=== PATIENT | female | born 1945 | race Caucasian/White ===

== ENCOUNTER 2017-07-05 11:39 | Inpatient (IN) ==
[2017-07-05] MEDS ORDERED: Ipratropium/Albuterol Neb 3 ML IH ONE (11:47)
[2017-07-05] MEDS ORDERED: predniSONE 20 MG TABLET PO ONE (11:47)
--- NOTE | 2017-07-05 12:11 | Emergency Department Note ---
Disposition Clinical Impression: Acute exacerbation of chronic obstructive airways disease Disposition: Still a Patient Referrals: Milana Montemayor CNP [Primary Care Provider] - General Adult HPI - General Chief complaint: ED Shortness of Breath/Dyspnea Stated complaint: NAOMI Time Seen by Provider: 07/05/17 11:45 - History of Present Illness Pain Scale: 8 - Related Data Home Medications Medication Instructions Recorded Confirmed Albuterol Sulfate [Proair Hfa] 2 puff IH Q4H PRN 08/19/16 09/13/16 Amlodipine Besylate 10 mg PO DAILY 08/19/16 09/13/16 Aspirin [Lo-Dose Aspirin EC] 81 mg PO DAILY 08/19/16 09/13/16 Atorvastatin Calcium [Lipitor] 80 mg PO DAILY 08/19/16 09/13/16 Buspirone HCl [Buspar] 15 mg PO BID 08/19/16 09/13/16 Clopidogrel [Plavix] 75 mg PO DAILY 08/19/16 09/13/16 Ergocalciferol (VITAMIN D2) 50,000 unit PO QWEEK 08/19/16 09/13/16 [Vitamin D2] Isosorbide MONOnitrate [Isosorbide 120 mg PO DAILY 08/19/16 09/13/16 Mononitrate ER] Levothyroxine [Synthroid] 100 mcg PO DAILY 08/19/16 09/13/16 Lisinopril [Zestril] 10 mg PO DAILY 08/19/16 09/13/16 Metoprolol XL (24 HR) Succ [Toprol 12.5 mg PO DAILY 08/19/16 09/13/16 Xl] Nitroglycerin [Nitrostat] 0.4 mg SL Q5M PRN 08/19/16 09/13/16 Omeprazole [PriLOSEC] 20 mg PO DAILY 08/19/16 09/13/16 Sucralfate [Carafate] 1 gm PO BID 08/19/16 09/13/16 Trazodone HCl 50 mg PO HS PRN 08/19/16 09/13/16 Lactobacillus Acidophilus 100 mg PO QID 09/13/16 09/13/16 [Acidophilus] Allergies Allergy/AdvReac Type Severity Reaction Status Date / Time celecoxib [From Celebrex] AdvReac See Verified 07/05/17 11:42 Comments NSAIDS (Non-Steroidal AdvReac SEE COMMENT Verified 07/05/17 11:42 Anti-Inflamma Sulfa (Sulfonamide AdvReac AMS Verified 07/05/17 11:42 Antibiotics) Past Medical History - Past Medical History Medical history: Reports: asthma, COPD, coronary artery disease, GERD, hyperlipidemia, hypertension, myocardial infarction, renal disease Surgical history: Reports: angioplasty/stent, coronary bypass (CABG), CARLOS/BSO, thyroidectomy Psychiatric history: Reports: anxiety, depression CASEWORKER INTAKE history: Reports: no CASEWORKER INTAKE history - Social History Smoking Status: Current every day smoker Smokeless Tobacco Status: No Alcohol use: Reports: none Drug use: Reports: none Course - Reevaluation(s) Reevaluation #1: Attestation note I did independently examine and verified the physical examination findings evaluation workup and disposition of this patient. We had independent face-to- face examination and discussion. The patient was seen with the emergency medicine resident Dr. RADHA BARROW I examined this patient and my medical decision-making was reviewed with the Resident Physician/EVENT COORDINATOR/PA. I agree with the documented findings, disposition and treatment plan as described except to the extent set forth below. Briefly: 71-year-old female O2 dependent COPD comes in with several days of increasing cough shortness breath and fatigue. Patient has bilateral expiratory wheezing with rhonchi. Patient is tachycardic and slightly hypoxic. Placed on oxygen getting triple DuoNeb steroids and lateral chest x-ray EKG and screening labs. Providing 40 minutes of critical care service for this patient. Disposition pending Time: 12:10 Vital Signs Temperature 97.8 F 07/05/17 11:41 Pulse Rate 81 07/05/17 11:41 Respiratory Rate 24 07/05/17 11:41 Blood Pressure 138/70 07/05/17 11:41 O2 Sat by Pulse Oximetry 95 07/05/17 11:41 Temperature 97.8 F 07/05/17 11:41 Pulse Rate 81 07/05/17 11:41 Respiratory Rate 24 07/05/17 11:41 Blood Pressure 138/70 07/05/17 11:41 O2 Sat by Pulse Oximetry 95 07/05/17 11:41 Oxygen Delivery Oxygen Delivery Room Air
[2017-07-05 12:24] LABS: Basophils % 0.7 %; Eosinophils # 0.2 K/mcL (0.0-0.6); Eosinophils % 2.5 %; Hematocrit 39.7 % (35.3-44.9); Hemoglobin 13.6 g/dL (11.5-15.4); Immature Granulocytes % 0.3 % (0-4); Lymphocytes % 32.1 %; Mean Corpuscular HGB Conc 34.3 g/dL (31.6-35.5); Mean Corpuscular Hemoglobin 31.4 pg (28.0-33.3); Mean Corpuscular Volume 91.7 fL (83.0-100.0); Mean Platelet Volume 8.7 fL (9.4-12.4); Monocytes # 0.3 K/mcL (0.0-1.3); Monocytes % 5.6 %; Neutrophils # 3.6 K/mcL (1.6-8.9); Nucleated Red Blood Cells 0.3 /100 WBC (0); Platelet Count 310 K/mcL (140-400); Red Blood Count 4.33 M/mcL (3.82-4.97); Red Cell Distribution Width 14.6 % (11.5-14.5); Segmented Neutrophils % 58.8 %
[2017-07-05 12:33] LABS: BUN/Creatinine Ratio 16 (6-26); Blood Urea Nitrogen 14 mg/dL (8-23); Calcium 9.5 mg/dL (8.6-10.3); Carbon Dioxide 23 mEq/L (23-29); Chloride 104 mEq/L (98-107); Glucose 132 mg/dL (70-105); Osmolality,Calculated 282 (280-300); Potassium 3.9 mEq/L (3.5-5.1); Sodium 135 mEq/L (136-145); Troponin I < 0.03 ng/mL (< 0.04); eGFR For African Americans > 60 (> 60); eGFR For Non-African Americans > 60 (> 60)
[2017-07-05] MEDS ORDERED: *HR* LORazepam 2 MG/ML VIAL IVP ONE (13:31)
--- NOTE | 2017-07-05 15:14 | Emergency Department Note ---
Disposition Clinical Impression: Acute exacerbation of chronic obstructive airways disease Chest pain Qualifiers: Chest pain type: unspecified Qualified Code(s): R07.9 - Chest pain, unspecified Disposition: Admitted As Inpatient Condition: Fair Referrals: Milana Montemayor CNP [Primary Care Provider] - Time of Disposition: 13:00 SOB HPI - General Chief Complaint: ED Shortness of Breath/Dyspnea Stated Complaint: NAOMI Time Seen by Provider: 07/05/17 11:45 Source: patient Limitations: no limitations Nursing Notes Reviewed: Yes Vital Signs Reviewed: Yes - History of Present Illness Patient is a 71-year-old female who presents to [facility] ED with a chief complaint of difficulty breathing. States her symptoms have been worsening over the last several days. She has a history of COPD. States she has had some chest pain in the substernal region that radiates to the left arm. Denies any nausea, vomiting, fever or chills. She is a smoker daily and knows she needs to quit. Past medical history significant for triple bypass surgery along with 4 stents placed back in 2004. States she follows with file clerk Dr. Chase. States she does not have any nebulizers at home. She uses a rescue inhaler and has had to use it twice today. States she has had a dry cough. No abdominal pain, problems with urination or bowel movements. Pt Subjective Complaint: shortness of breath Onset (ago): day(s) Severity: moderate Consistency/Duration: gradually worsening Improves with: nothing Worsens with: nothing Known history of: COPD Associated symptoms: Reports: chest pain Treatment prior to arrival: none Cough present: Yes Cough Frequency: Intermittent Sputum production: No - Related Data Home oxygen amount: none Home Medications Medication Instructions Recorded Confirmed Amlodipine Besylate 10 mg PO DAILY 08/19/16 07/05/17 Aspirin [Lo-Dose Aspirin EC] 81 mg PO DAILY 08/19/16 07/05/17 Atorvastatin Calcium [Lipitor] 80 mg PO DAILY 08/19/16 07/05/17 Buspirone HCl [Buspar] 15 mg PO BID 08/19/16 07/05/17 Clopidogrel [Plavix] 75 mg PO DAILY 08/19/16 07/05/17 Ergocalciferol (VITAMIN D2) 50,000 unit PO QWEEK 08/19/16 07/05/17 [Vitamin D2] Isosorbide MONOnitrate [Isosorbide 120 mg PO DAILY 08/19/16 07/05/17 Mononitrate ER] Levothyroxine [Synthroid] 100 mcg PO DAILY 08/19/16 07/05/17 Lisinopril [Zestril] 10 mg PO DAILY 08/19/16 07/05/17 Metoprolol XL (24 HR) Succ [Toprol 12.5 mg PO DAILY 08/19/16 07/05/17 Xl] Nitroglycerin [Nitrostat] 0.4 mg SL Q5M PRN 08/19/16 07/05/17 Omeprazole [PriLOSEC] 20 mg PO DAILY 08/19/16 07/05/17 Sucralfate [Carafate] 1 gm PO BID 08/19/16 07/05/17 Trazodone HCl 50 mg PO HS PRN 08/19/16 07/05/17 Lactobacillus Acidophilus 100 mg PO QID 09/13/16 07/05/17 [Acidophilus] Hyoscyamine Sulfate [Levbid] 0.375 mg PO BID 07/05/17 07/05/17 Allergies Allergy/AdvReac Type Severity Reaction Status Date / Time celecoxib [From Celebrex] AdvReac See Verified 07/05/17 11:42 Comments NSAIDS (Non-Steroidal AdvReac SEE COMMENT Verified 07/05/17 11:42 Anti-Inflamma Sulfa (Sulfonamide AdvReac AMS Verified 07/05/17 11:42 Antibiotics) All systems ED: reviewed and negative except as stated. Past Medical History - Past Medical History Attestation: Yes The following information was validated with the patient. Source: patient Medical history: Reports: asthma, COPD, coronary artery disease, GERD, hyperlipidemia, hypertension, myocardial infarction, renal disease Surgical history: Reports: angioplasty/stent, coronary bypass (CABG), CARLOS/BSO, thyroidectomy Psychiatric history: Reports: anxiety, depression FRENCH BINDING FOLDER history: Reports: no FRENCH BINDING FOLDER history - Social History Smoking Status: Current every day smoker Smokeless Tobacco Status: No Alcohol use: Reports: none Drug use: Reports: none Physical Exam - General Limitations: no limitations General appearance: alert, in no apparent distress - Head Head exam: atraumatic, normocephalic, normal inspection - Eye Eye exam: Present: normal appearance, EOMI - ENT ENT exam: normal exam, normal oropharynx, mucous membranes moist - Neck Neck exam: Present: normal inspection, full ROM, trachea midline - Chest Chest inspection: Present: normal inspection, symmetric chest wall rise - Respiratory Respiratory exam: Present: wheezes (Diffusely bilaterally) - Cardiovascular Cardiovascular exam: Present: regular rate, normal rhythm, normal heart sounds - Abdominal Exam Abdominal exam: Present: soft, Non-Tender. Absent: tenderness, distention, guarding, rebound, rigidity - Extremities Exam Extremities exam: Present: normal inspection, full ROM. Absent: tenderness, pedal edema - Back Exam Back exam: Present: normal inspection - Neurological Exam Neurological exam: Present: alert, oriented X3 - Psychiatric Psychiatric exam: Present: normal affect, normal mood - Skin Skin exam: Present: warm, dry, intact, normal color Course Course Narrative: Patient seen and examined. COPD exacerbation. Patient has diffuse wheezes bilaterally. Triple DuoNeb as well as prednisone ordered. Cardiopulmonary workup initiated. - Reevaluation(s) Reevaluation #1: Patient's lab work is unremarkable. She still has scattered wheezes and tight breath sounds, though does sound improved from before. Since she does not have a nebulizer at home, there is some concern that she will deteriorate. She does not have any home oxygen either. We will admit for continued steroids and DuoNeb treatments. Since she has also had chest pain, we will admit for rule out ACS. I discussed with the hospitalists who has accepted patient for admission. Time: 13:29 Vital Signs Temperature 97.8 F 07/05/17 11:41 Pulse Rate 81 07/05/17 11:41 Respiratory Rate 24 07/05/17 11:41 Blood Pressure 138/70 07/05/17 11:41 O2 Sat by Pulse Oximetry 95 07/05/17 11:41 Temperature 98.8 F 07/05/17 14:57 Pulse Rate 71 07/05/17 14:57 Respiratory Rate 16 07/05/17 14:57 Blood Pressure 106/54 07/05/17 14:57 O2 Sat by Pulse Oximetry 96 07/05/17 14:57 Oxygen Delivery Oxygen Delivery Room Air Shortness of Breath/Dyspnea - Medical Records Medical records reviewed: Yes I reviewed the patient's medical records. - Lab Data Lab results reviewed: Yes I reviewed the patient's lab results. Result diagrams: 07/05/17 12:00 07/05/17 12:00 Lab Results 07/05/17 07/05/17 07/05/17 Range/Units 12:00 12:00 12:00 WBC 6.1 (4.3-11.1) K/mcL RBC 4.33 (3.82-4.97) M/mcL Hgb 13.6 (11.5-15.4) g/dL Hct 39.7 (35.3-44.9) % MCV 91.7 (83.0-100.0) fL MCH 31.4 (28.0-33.3) pg MCHC 34.3 (31.6-35.5) g/dL RDW 14.6 H (11.5-14.5) % Plt Count 310 (140-400) K/mcL MPV 8.7 L (9.4-12.4) fL Immature Gran % 0.3 (0-4) % Seg Neutrophils % 58.8 % Lymphocytes % 32.1 % Monocytes % 5.6 % Eosinophils % 2.5 % Basophils % 0.7 % Neutrophils # 3.6 (1.6-8.9) K/mcL Lymphocytes # 2.0 (0.6-4.6) K/mcL Monocytes # 0.3 (0.0-1.3) K/mcL Eosinophils # 0.2 (0.0-0.6) K/mcL Basophils # 0.0 (0.0-0.2) K/mcL Nucleated RBCs/100 WBC 0.3 H (0) /100 WBC Sodium 135 L (136-145) mEq/L Potassium 3.9 (3.5-5.1) mEq/L Chloride 104 (98-107) mEq/L Carbon Dioxide 23 (23-29) mEq/L BUN 14 (8-23) mg/dL Creatinine 0.85 (0.60-1.20) mg/dL Est GFR ( Amer) > 60 (> 60) Est GFR (Non-Af Amer) > 60 (> 60) BUN/Creatinine Ratio 16 (6-26) Glucose 132 H (70-105) mg/dL Calculated Osmolality 282 (280-300) Calcium 9.5 (8.6-10.3) mg/dL Troponin I < 0.03 (< 0.04) ng/mL B-Natriuretic Peptide 46 (Less than 100) pg/mL - Radiology Data Radiology results reviewed: Yes I reviewed the patient's radiology results. Chest X-Ray 07/05/17 11:48 IMPRESSION: 1. No acute airspace consolidation. 2. Stable mild right basilar atelectasis. 3. Stable enlargement of the bilateral hilar shadows. While this could reflect chronic pulmonary arterial enlargement in the setting of chronic pulmonary arterial hypertension, the possibility of hilar lymphadenopathy or a hilar mass is raised. Consider further characterization with a chest CT with contrast. D/ / 07/05/2017 12:56:43 Christopher Rust MD / [facility] Interpreting Provider: Christopher Rust MD - EKG Data EKG attestation: Yes I reviewed and interpreted this EKG. EKG results narrative: EKG done at 1154 shows normal sinus rhythm with a rate of [address] elevation or depression. Normal axis.
--- NOTE | 2017-07-05 15:15 | Internal Med History&Physical ---
Date of Encounter: 07/05/17 Time of Encounter: 14:57 Internal Medicine - H&P: HPI Chief complaint: SOB History of present illness: Ms. Medley is a 71 year old female with PMH of triple bypass surgery along with 4 stents placed back in 2004 and F/U with licensing services clerk Dr. Chase and H/O COPD who presented initially to urgent care with right air pain associated with difficulty breathing and left arm pin, She denies CP. She is a smoker daily , She was admitted to for further evaluation of possible COPD exacerbation. Past Med Surg Social Fam HX - Past Medical History Medical history: asthma, COPD, coronary artery disease, GERD, hyperlipidemia, hypertension, myocardial infarction, renal disease Psychiatric history: anxiety, depression - Past Surgical History Surgical History: angioplasty/stent, coronary bypass (CABG), CARLOS/BSO, thyroidectomy - Social History Smoking Status: Current every day smoker Smokeless Tobacco Status: No Alcohol use: none Drug use: none - Family History Father Adopted: No Family Member Ethnicity: Non- Living Status: Age at : 58 Cause of : colon and stomach cancer Mother Adopted: No Living Status: Cause of : heart attack Hx Family Cardiac Disorders: Yes Internal Medicine - H&P: Meds Amlodipine Besylate 10 mg PO DAILY 08/19/16 [History] Aspirin [Lo-Dose Aspirin EC] 81 mg PO DAILY 08/19/16 [History] Atorvastatin Calcium [Lipitor] 80 mg PO DAILY 08/19/16 [History] Buspirone HCl [Buspar] 15 mg PO BID 08/19/16 [History] Clopidogrel [Plavix] 75 mg PO DAILY 08/19/16 [History] Ergocalciferol (VITAMIN D2) [Vitamin D2] 50,000 unit PO QWEEK 08/19/16 [History] Isosorbide MONOnitrate [Isosorbide Mononitrate ER] 120 mg PO DAILY 08/19/16 [ History] Levothyroxine [Synthroid] 100 mcg PO DAILY 08/19/16 [History] Lisinopril [Zestril] 10 mg PO DAILY 08/19/16 [History] Metoprolol XL (24 HR) Succ [Toprol Xl] 12.5 mg PO DAILY 08/19/16 [History] Nitroglycerin [Nitrostat] 0.4 mg SL Q5M PRN 08/19/16 [History] Omeprazole [PriLOSEC] 20 mg PO DAILY 08/19/16 [History] Sucralfate [Carafate] 1 gm PO BID 08/19/16 [History] Trazodone HCl 50 mg PO HS PRN 08/19/16 [History] Lactobacillus Acidophilus [Acidophilus] 100 mg PO QID 09/13/16 [History] Hyoscyamine Sulfate [Levbid] 0.375 mg PO BID 07/05/17 [History] ALPRAZolam [Xanax 0.25 MG Tablet] 0.25 mg PO Q8HR 7 Days #21 tablet 07/07/17 [Rx ] Amoxicillin/Clavulanate [Augmentin] 500 mg PO BIDWM 8 Days #16 tablet 07/07/17 [ Rx] Docusate Sodium [Colace] 100 mg PO BID #60 capsule 07/11/17 [Rx] FentaNYL PATCH [Duragesic] 25 mcg TD Q72H 30 Days #10 patch.td72 07/11/17 [Rx] Lidocaine/Prilocaine [Emla] 1 appl TP AD #30 gm 07/11/17 [Rx] OxyCODONE/APAP 5/325 [Percocet 5/325 MG] 1 each PO Q6HR PRN 15 Days #60 tablet 07/11/17 [Rx] Polyethylene Glycol 3350 [MiraLAX] 17 gm PO DAILY #30 powd.pack 07/11/17 [Rx] Allopurinol [Zyloprim 300 MG] 300 mg PO DAILY #30 tablet 07/16/17 [Rx] Amoxicillin/Clavulanate [Augmentin] 1 tab PO BIDWM #14 tablet 07/16/17 [Rx] FentaNYL PATCH [Duragesic] 1 patch TD Q72H 30 Days #10 patch.td72 07/16/17 [Rx] Lansoprazole [Prevacid] 30 mg PO QAM #30 capsule. 07/16/17 [Rx] Ondansetron HCl [Zofran] 4 mg PO Q6H PRN #40 tablet 07/16/17 [Rx] Prochlorperazine Maleate [Compazine] 10 mg PO Q6HR PRN #40 tablet 07/16/17 [Rx] Stomatitis Mixture 5 ml PO Q4H PRN #240 mls 07/16/17 [Rx] 3 Allergy/AdvReac Type Severity Reaction Status Date / Time rofecoxib [From Vioxx] Allergy See Verified 07/16/17 11:57 Comments celecoxib [From Celebrex] AdvReac See Verified 07/16/17 11:57 Comments NSAIDS (Non-Steroidal AdvReac SEE COMMENT Verified 07/16/17 11:57 Anti-Inflamma Sulfa (Sulfonamide AdvReac AMS Verified 07/16/17 11:57 Antibiotics) All Systems PM: A 10-system review of systems was performed and is negative for pertinent findings except as documented above in the HPI. - Constitutional Constitutional: no chills, no fever(s), no night sweats - EENT Ears: ear pain - Cardiovascular Cardiovascular ROS IM: dyspnea, no chest pain, no diaphoresis, no lightheadedness, no palpitations, no syncope - Respiratory Respiratory: dyspnea, no cough, no wheezing, no excessive phlegm production - Gastrointestinal Gastrointestinal: no abdominal pain, no diarrhea, no hematemesis, no hematochezia, no melena, no nausea, no vomiting - Neurological Neurological ROS: no confusion, no convulsions, no focal weakness, no numbness, no tingling, no tremor(s) - Constitutional Vitals: Temp Pulse Resp BP Pulse Ox 98 F 81 18 112/59 94 07/05/17 13:54 07/05/17 12:13 07/05/17 13:54 07/05/17 13:54 07/05/17 12:16 General appearance: Present: A&O X 3 - Head Head exam: Present: atraumatic, normocephalic - Neck Neck exam general surgery: Present: supple, trachea midline. Absent: lymphadenopathy - Respiratory Respiratory exam: Present: CTAB. Absent: accessory muscle use, rales, rhonchi, wheezes - Cardiovascular Cardiovascular exam: Present: RRR, +S1, +S2. Absent: diastolic murmur, gallop, rubs, systolic murmur - GI/Abdominal GI/Abdominal exam: Present: normal bowel sounds, soft, no peritoneal signs. Absent: distended, tenderness - Extremities Exam Extremities exam: Present: warm, radial pulses palpable and symmetrical. Absent : calf tenderness, cyanotic, pedal edema Internal Med - H&P Results - Labs CBC & Chem 7: 07/07/17 05:27 07/07/17 05:27 - Assessment and plan (1) SOB (shortness of breath) Status: Acute Assessment and plan: ASSESSMENT: - SOB DD *COPD exacerbation caused by URTI, allergen exposure, medication nonocompliance *Bronchitis *Pneumonia - no infiltrate on CXR PLAN: - Aerosols q 4 hr and PRN SOB - Solu-medrol 40 mg IV q 6 hr - O2 to keep SpO2 higher than 92% (SpO higher than 95% if CAD) - CBCD, BMP in AM - Tylenol 650 mg PO q 4-6 hr PRN pain/fever - Heparin 5000 U SQ BID - Home meds - Azithromycine 500 po daily (2) Hyperlipemia Status: Acute Assessment and plan: We will cont. home statin, We obtain FLP Qualifiers: Hyperlipidemia type: unspecified Qualified Code(s): E78.5 - Hyperlipidemia , unspecified (3) Hypothyroid Status: Acute Assessment and plan: We will cont home meds Qualifiers: Hypothyroidism type: unspecified Qualified Code(s): E03.9 - Hypothyroidism , unspecified (4) DVT prophylaxis Status: Acute Assessment and plan: We will start the patient on sc Heparin (5) Right ear pain Status: Acute Assessment and plan: We started empiric ABs for possible otitis media - Time Spent With Patient Total time spent is greater than 50% in coordination of care (as documented) at patient's floor/unit and/or counseling patient:
[2017-07-05] MEDS ORDERED: Naloxone 0.4 MG/ML INJ IVP PRN (15:30)
[2017-07-05] MEDS ORDERED: Azithromycin 500 MG in D5% in Water 250 ML IVPB SCH (16:00)
[2017-07-05] MEDS: Nicotine 21 MG PATCH.TD24 TD SCH (17:21)
[2017-07-05] MEDS: MethylPREDNISolone 40 MG/ML VIAL IVP SCH ×2 (17:22→23:59)
[2017-07-05] MEDS: Ipratropium/Albuterol Neb 3 ML IH SCH ×2 (17:59→22:37)
[2017-07-05] MEDS: *HR* HYDROcodone/Acet 5/325 mg TABLET PO PRN (18:59)
[2017-07-05] MEDS: Acetaminophen 325 MG TABLET PO PRN (20:21)
[2017-07-06] MEDS: Acetaminophen 325 MG TABLET PO PRN ×3 (03:27→20:23)
[2017-07-06] MEDS: Nitroglycerin 0.4 MG TAB.SUBL SL PRN ×2 (03:35→03:42)
[2017-07-06 03:49] LABS: Prothrombin Time 10.7 Seconds (9.4-12.1)
[2017-07-06 03:50] LABS: Basophils % 0.2 %; Hematocrit 35.4 % (35.3-44.9); Hemoglobin 12.4 g/dL (11.5-15.4); Immature Granulocytes % 0.5 % (0-4); Lymphocytes # 0.9 K/mcL (0.6-4.6); Lymphocytes % 13.3 %; Mean Corpuscular Hemoglobin 31.7 pg (28.0-33.3); Mean Corpuscular Volume 90.5 fL (83.0-100.0); Mean Platelet Volume 8.9 fL (9.4-12.4); Monocytes # 0.1 K/mcL (0.0-1.3); Monocytes % 1.1 %; Neutrophils # 5.5 K/mcL (1.6-8.9); Platelet Count 285 K/mcL (140-400); Red Blood Count 3.91 M/mcL (3.82-4.97); Red Cell Distribution Width 14.5 % (11.5-14.5); Segmented Neutrophils % 84.9 %
[2017-07-06 03:52] LABS: Activated Partial Thrombo Time 27.7 Seconds (26.0-36.0)
[2017-07-06] MEDS: Ipratropium/Albuterol Neb 3 ML IH SCH ×4 (03:58→22:00)
[2017-07-06 04:08] LABS: Alanine Aminotransferase 10 Units/L (7-52); Albumin 4.1 g/dL (3.5-5.7); Albumin/Globulin Ratio 1.4 (1.1-2.2); Alkaline Phosphatase 72 Units/L (34-104); Aspartate Amino Transferase 16 Units/L (13-39); BUN/Creatinine Ratio 26 (6-26); Bilirubin,Total 0.3 mg/dL (0.3-1.0); Blood Urea Nitrogen 18 mg/dL (8-23); Calcium 8.7 mg/dL (8.6-10.3); Carbon Dioxide 22 mEq/L (23-29); Chloride 109 mEq/L (98-107); Chol/HDL Ratio 3.2 (0-4.9); Cholesterol 164 mg/dL (< 200); Glucose 149 mg/dL (70-105); HDL Cholesterol 52 mg/dL (40-59); LDL Cholesterol,Calculated 100 mg/dL (0-99); Magnesium 1.9 mg/dL (1.6-2.6); Osmolality,Calculated 289 (280-300); Phosphorous 3.1 mg/dL (2.7-4.5); Potassium 4.1 mEq/L (3.5-5.1); Sodium 137 mEq/L (136-145); Total Protein 7.1 g/dL (6.4-8.9); Triglycerides 62 mg/dL (< 150); eGFR For African Americans > 60 (> 60); eGFR For Non-African Americans > 60 (> 60)
[2017-07-06] MEDS: MethylPREDNISolone 40 MG/ML VIAL IVP SCH ×3 (06:14→16:41)
[2017-07-06] MEDS: Nicotine 21 MG PATCH.TD24 TD SCH (09:32)
[2017-07-06] MEDS: *HR* HYDROcodone/Acet 5/325 mg TABLET PO PRN (09:43)
[2017-07-06] MEDS ORDERED: traZODone 50 MG TABLET PO PRN (11:09)
[2017-07-06] MEDS ORDERED: Nitroglycerin 0.4 MG TAB.SUBL SL PRN (11:09)
[2017-07-06] MEDS ORDERED: Cholecalciferol (D-3) 1,000 UNIT TABLET PO SCH (11:15)
--- NOTE | 2017-07-06 11:15 | Internal Med Progress Note ---
Date of Encounter: 07/06/17 Time of Encounter: 11:13 - Assessment and plan (1) Acute exacerbation of chronic obstructive pulmonary disease (COPD) Current Visit: Yes Status: Acute Assessment and plan: Patient presented with a multi day C/o shortness of breath Found to have an acute exacerbation of COPD; does not appear to have URI or LRI Chest x-ray negative for acute pulmonary process Fine expiratory wheezes auscultated throughout Patient reports that she continues to feel mildly short of breath above baseline Continue bronchodilators Continue Solu-Medrol IV Continue to monitor respiratory status, when necessary O2 support as needed CBC and BMP in the morning (2) Chronic sinusitis, unspecified Current Visit: Yes Status: Acute Assessment and plan: Follows with her, nose, throat specialist Follow as outpatient Qualifiers: Qualified Code(s): J32.9 - Chronic sinusitis, unspecified (3) Acute otitis media with effusion of right ear Current Visit: Yes Status: Acute Assessment and plan: Patient plan of right ear pain, history of chronic otitis media and chronic sinusitis Otoscopic examination reveals bulging right TM with purulent effusion, no drainage, no hole identified in TM No leukocytosis noted on labs Acetaminophen for pain Change antibiotics to Augmentin Without active ear drainage Ciprodex likely not beneficial Continue with IV steroids to help reduce canal inflammation Patient instructed to perform auto insufflation Continue to monitor daily (4) Hyperlipemia Current Visit: Yes Status: Acute Assessment and plan: Continue cholesterol medications Qualifiers: Hyperlipidemia type: unspecified Qualified Code(s): E78.5 - Hyperlipidemia , unspecified (5) Hypothyroid Current Visit: Yes Status: Acute Assessment and plan: Continue Synthroid Qualifiers: Hypothyroidism type: unspecified Qualified Code(s): E03.9 - Hypothyroidism , unspecified (6) DVT prophylaxis Current Visit: Yes Status: Acute Assessment and plan: Continue SC heparin - Time Spent With Patient Total time spent is greater than 50% in coordination of care (as documented) at patient's floor/unit and/or counseling patient: 25 - 35 minutes - Subjective Interval history: Ms. Medley is a 71 year old female with PMH of triple bypass surgery along with 4 stents placed back in 2004 and F/U with core shaper top Dr. Chase and H/O COPD who presented initially to urgent care with right air pain associated with difficulty breathing and left arm pain. Found to have an acute exacerbation of COPD. The patient has never complained of chest pain. Serial troponins found to be negative, ECG tracing without ischemic changes. Patient reports history of baseline shortness of breath however, continues to have worsening shortness of breath. Additionally, she is complaining of right ear discomfort. Has history of chronic otitis media and chronic sinusitis follows with ENT. - Constitutional Vitals: Temp Pulse Resp BP Pulse Ox 99.7 F H 102 18 121/49 96 07/06/17 11:05 07/06/17 11:05 07/06/17 11:05 07/06/17 11:05 07/06/17 11:05 General appearance: Present: A&O X 3 - Head Head exam: Present: atraumatic, normocephalic - Eye Eye exam: Present: PERRL, conjuntiva pink, sclera anicteric Pupils: Present: PERRL - ENT ENT exam: Present: mucous membranes moist - Expanded ENT Exam bulging: Right TM (With purulence behind TM), canal tenderness: Right TM Mouth exam: Present: moist, normal external inspection, tongue normal Throat exam: Present: normal inspection - Neck Neck exam general surgery: Present: supple, trachea midline. Absent: lymphadenopathy - Respiratory Respiratory exam: Present: CTAB. Absent: accessory muscle use, rales, rhonchi, wheezes - Cardiovascular Cardiovascular exam: Present: RRR, +S1, +S2. Absent: diastolic murmur, gallop, rubs, systolic murmur - GI/Abdominal GI/Abdominal exam: Present: normal bowel sounds, soft, no peritoneal signs. Absent: distended, tenderness - Extremities Exam Extremities exam: Present: warm, radial pulses palpable and symmetrical. Absent : calf tenderness, cyanotic, pedal edema - Neurological Exam Neurological exam: Present: CN II-XII intact, oriented X3, no focal deficits. Absent: pronater drift, facial droop, speech deficit - Skin Skin exam: Present: dry, intact Internal Medicine: Result - Labs CBC & Chem 7: 07/06/17 03:06 07/06/17 03:06 Labs: Short CBC 07/06/17 Range/Units 03:06 WBC 6.4 (4.3-11.1) K/mcL Hgb 12.4 (11.5-15.4) g/dL Hct 35.4 (35.3-44.9) % Plt Count 285 (140-400) K/mcL Neutrophils # 5.5 (1.6-8.9) K/mcL BMP 07/06/17 03:06 Sodium 137 Potassium 4.1 Chloride 109 H Carbon Dioxide 22 L BUN 18 Creatinine 0.70 Glucose 149 H Calcium 8.7 Cardiac Enzymes 07/05/17 07/06/17 Range/Units 21:47 03:06 Troponin I < 0.03 < 0.03 (< 0.04) ng/mL Liver Function 07/06/17 Range/Units 03:06 Total Bilirubin 0.3 (0.3-1.0) mg/dL AST 16 (13-39) Units/L ALT 10 (7-52) Units/L Alkaline Phosphatase 72 (34-104) Units/L Albumin 4.1 (3.5-5.7) g/dL - ABG Interpretation ABG results: PT/INR, D-dimer PT 10.7 Seconds (9.4-12.1) 07/06/17 03:06 Consult Discharge Plan - Plan Referrals: Milana Montemayor, DISTRIBUTION ASSOCIATE [Primary Care Provider] -
[2017-07-06] MEDS: Isosorbide MONOnitrate (24 HR) 60 MG TAB.ER.24H PO SCH (11:52)
[2017-07-06] MEDS: amLODIPine 5 MG TABLET PO SCH (11:52)
[2017-07-06] MEDS: Aspirin Enteric Coated 81 MG Tablet PO SCH (11:53)
[2017-07-06] MEDS: Lactobacillus 1 EACH CAP.SPRINK PO SCH (11:53)
[2017-07-06] MEDS: Metoprolol XL (24 HR) Succ 25 MG TAB.ER.24H PO SCH (11:53)
[2017-07-06] MEDS: Sucralfate 1 GM TABLET PO SCH ×2 (11:53→20:19)
[2017-07-06] MEDS: HYOSCYAMINE SULFATE 0.375 MG PO SCH ×2 (12:58→20:26)
[2017-07-06] MEDS: Cholecalciferol (D-3) 1,000 UNIT TABLET PO SCH (13:00)
[2017-07-06] MEDS ORDERED: Ondansetron 4 MG/2 ML VIAL IVP PRN (14:20)
[2017-07-06] MEDS ORDERED: *HR* Promethazine 25 MG/ML VIAL IVP ONE (14:22)
[2017-07-06] MEDS: Amoxicillin/Clavulanate 500 MG TABLET PO SCH (16:41)
[2017-07-06] MEDS ORDERED: *HR* Promethazine 25 MG/ML VIAL IVP PRN (19:34)
[2017-07-07] MEDS: MethylPREDNISolone 40 MG/ML VIAL IVP SCH ×3 (00:01→10:44)
[2017-07-07] MEDS: Ipratropium/Albuterol Neb 3 ML IH SCH ×3 (04:00→16:18)
[2017-07-07 05:55] LABS: Hematocrit 38.6 % (35.3-44.9); Hemoglobin 12.4 g/dL (11.5-15.4); Immature Granulocytes % 0.6 % (0-4); Lymphocytes # 0.6 K/mcL (0.6-4.6); Lymphocytes % 4.7 %; Mean Corpuscular HGB Conc 32.1 g/dL (31.6-35.5); Mean Corpuscular Hemoglobin 30.5 pg (28.0-33.3); Mean Corpuscular Volume 95.1 fL (83.0-100.0); Mean Platelet Volume 9.2 fL (9.4-12.4); Monocytes # 0.3 K/mcL (0.0-1.3); Monocytes % 2.1 %; Neutrophils # 11.7 K/mcL (1.6-8.9); Platelet Count 166 K/mcL (140-400); Red Blood Count 4.06 M/mcL (3.82-4.97); Red Cell Distribution Width 15.2 % (11.5-14.5); Segmented Neutrophils % 92.6 %
[2017-07-07 06:26] LABS: Platelet Estimate Normal (Normal); Toxic Granulation Present (Not Present)
[2017-07-07 06:36] LABS: BUN/Creatinine Ratio 24 (6-26); Blood Urea Nitrogen 18 mg/dL (8-23); Carbon Dioxide 15 mEq/L (23-29); Chloride 112 mEq/L (98-107); Glucose 151 mg/dL (70-105); Osmolality,Calculated 287 (280-300); Potassium 4.7 mEq/L (3.5-5.1); Sodium 136 mEq/L (136-145); eGFR For African Americans > 60 (> 60); eGFR For Non-African Americans > 60 (> 60)
[2017-07-07] MEDS: Sucralfate 1 GM TABLET PO SCH ×2 (10:36→16:03)
[2017-07-07] MEDS: Aspirin Enteric Coated 81 MG Tablet PO SCH (10:36)
[2017-07-07] MEDS: Cholecalciferol (D-3) 1,000 UNIT TABLET PO SCH (10:37)
[2017-07-07] MEDS: Lactobacillus 1 EACH CAP.SPRINK PO SCH (10:37)
[2017-07-07] MEDS: amLODIPine 5 MG TABLET PO SCH (10:37)
[2017-07-07] MEDS: Isosorbide MONOnitrate (24 HR) 60 MG TAB.ER.24H PO SCH (10:37)
[2017-07-07] MEDS: Metoprolol XL (24 HR) Succ 25 MG TAB.ER.24H PO SCH (10:38)
[2017-07-07] MEDS: Nicotine 21 MG PATCH.TD24 TD SCH (10:38)
[2017-07-07] MEDS: HYOSCYAMINE SULFATE 0.375 MG PO SCH (10:38)
[2017-07-07] MEDS: *HR* HYDROcodone/Acet 5/325 mg TABLET PO PRN (10:44)
[2017-07-07] MEDS: Amoxicillin/Clavulanate 500 MG TABLET PO SCH ×2 (10:44→16:03)
[2017-07-07] MEDS ORDERED: Isovue-370 500 ML INFUS..BTL IV ONE (13:22)
--- NOTE | 2017-07-07 13:50 | Internal Med Progress Note ---
Date of Encounter: 07/07/17 Time of Encounter: 13:18 - Assessment and plan (1) Acute exacerbation of chronic obstructive pulmonary disease (COPD) Current Visit: Yes Status: Acute (2) Chronic sinusitis, unspecified Current Visit: Yes Status: Acute Qualifiers: Qualified Code(s): J32.9 - Chronic sinusitis, unspecified (3) Acute otitis media with effusion of right ear Current Visit: Yes Status: Acute (4) Hyperlipemia Current Visit: Yes Status: Acute Qualifiers: Hyperlipidemia type: unspecified Qualified Code(s): E78.5 - Hyperlipidemia , unspecified (5) Hypothyroid Current Visit: Yes Status: Acute Qualifiers: Hypothyroidism type: unspecified Qualified Code(s): E03.9 - Hypothyroidism , unspecified (6) DVT prophylaxis Current Visit: Yes Status: Acute - Time Spent With Patient Total time spent is greater than 50% in coordination of care (as documented) at patient's floor/unit and/or counseling patient: - Subjective Interval history: Ms. 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 Chase and H/O COPD who presented initially to urgent care with right ear pain, mild shortness of breath. The patient has never complained of chest pain. Serial troponins found to be negative, ECG tracing without ischemic changes. Patient reports history of baseline shortness of breath however. Seen and examined bedside and reports that she feels like she is breathing much better. She is continuing to have Rt ear discomfort, but denies any drainage. Has history of chronic otitis media and chronic sinusitis follows with ENT. - Constitutional Vitals: Temp Pulse Resp BP Pulse Ox 99.9 F H 89 14 116/63 100 07/07/17 10:56 07/07/17 10:56 07/07/17 10:56 07/07/17 10:56 07/07/17 10:56 General appearance: Present: A&O X 3 - Head Head exam: Present: atraumatic, normocephalic - Eye Eye exam: Present: PERRL, conjuntiva pink, sclera anicteric Pupils: Present: PERRL - Neck Neck exam general surgery: Present: supple, trachea midline. Absent: lymphadenopathy - Respiratory Respiratory exam: Present: CTAB. Absent: accessory muscle use, rales, rhonchi, wheezes - Cardiovascular Cardiovascular exam: Present: RRR, +S1, +S2. Absent: diastolic murmur, gallop, rubs, systolic murmur - GI/Abdominal GI/Abdominal exam: Present: normal bowel sounds, soft, no peritoneal signs. Absent: distended, tenderness - Extremities Exam Extremities exam: Present: warm, radial pulses palpable and symmetrical. Absent : calf tenderness, cyanotic, pedal edema - Neurological Exam Neurological exam: Present: CN II-XII intact, oriented X3, no focal deficits. Absent: pronater drift, facial droop, speech deficit - Skin Skin exam: Present: dry, intact Internal Medicine: Result - Labs CBC & Chem 7: 07/07/17 05:27 07/07/17 05:27 Labs: Short CBC 07/07/17 Range/Units 05:27 WBC 12.6 H D (4.3-11.1) K/mcL Hgb 12.4 (11.5-15.4) g/dL Hct 38.6 (35.3-44.9) % Plt Count 166 (140-400) K/mcL Neutrophils # 11.7 H (1.6-8.9) K/mcL BMP 07/07/17 05:27 Sodium 136 Potassium 4.7 Chloride 112 H Carbon Dioxide 15 L BUN 18 Creatinine 0.76 Glucose 151 H Calcium 8.0 L - ABG Interpretation ABG results: PT/INR, D-dimer PT 10.7 Seconds (9.4-12.1) 07/06/17 03:06 Consult Discharge Plan - Plan Referrals: Milana Montemayor FINISHING TRIMMER [Primary Care Provider] - 07/15/17 1:00 pm
--- NOTE | 2017-07-07 14:24 | Electrocardiograph Report ---
[place] [id number] Test Date: 2017-07-05 Pat Name: Ana Medley Department: 104 Room: 3B35 Gender: F Stock Layer: NEGRITO : 1945 Requested By: Nicholas Merino Order Number: [id number] Reading MD: Yasmine Root Measurements Intervals Harbinger Rate: 70 P: 7 HI: 124 QRS: 68 QRSD: 116 T: 95 QT: 350 QTc: 371 Interpretive Statements SINUS RHYTHM INTRAVENTRICULAR CONDUCTION DELAY [110+ ms QRS DURATION] NONSPECIFIC ST & T-WAVE ABNORMALITY Electronically Signed On 07-07-2017 14:23:18 EDT by Yasmine Root
[2017-07-07] MEDS: Acetaminophen 325 MG TABLET PO PRN (16:07)
[2017-07-07 16:13] VITALS: BP 128/63
--- NOTE | 2017-07-07 16:55 | Oncology Inp Consult Note ---
Date of Encounter: 07/07/17 Time of Encounter: 16:55 Assessment and Plan (1) Abnormal CT of the chest Status: Acute Assessment and plan: CT of the chest as detailed in HPI reveals extensive mediastinal adenopathy including large confluent precarinal and subcarinal lymph nodes up to 7 cm in maximal dimension along with large area of confluent right hilar multilobular adenopathy. Findings are concerning for primary lung cancer, potentially small cell lung carcinoma, or lymphoma, among others. Patient has already met with Dr. Gueirn to discuss chest CT results and recommendation for biopsy antonella. At this time, patient is adamant on leaving and following up as an outpatient for biopsy. I again discussed CT imaging results with patient and patients at bedside, along with recommendation for her to stay inpatient for bronchoscopy with biopsy tomorrow, we discussed the recommendation for biopsy antonella, however, patient states she needs to be discharged, spend time at home with family and "take time to gather herself". We discussed that CT images are highly concerning for malignancy, further treatment options will be discussed following biopsy, final pathology report and staging workup. Lab work- mainly unremarkable, mild leukocytosis secondary to steroids She is being discharged with treatment for COPD exacerbation and otitis media with effusion. Dr. Guerin's office is planned to call patient tomorrow to set up biopsy. I gave the patient my card with contact information and she will also hear from our office tomorrow to set up a follow up with Dr. Raymond and further staging scans. - Data of Consult Patient: new to practice Consult date: 07/07/17 Requesting Physician: Thea John Primary Care Provider: Milana Montemayor CNP - Consult Narrative Reason for consult: Mediastinal adenopathy, abnormal CT chest History of present illness: Ms. Medley is a 71 year old female with past medical history significant for CAD , triple bypass surgery along with 4 stents placed in 2004, COPD, HTN, Hyperlipidemia and tobacco abuse. Patient presented to ED on 07/05/2017 for shortness of breath, she was admitted with COPD exacerbation. She has a h/o COPD and is established with Dr. Guerin with pulmonology. Ms. Medley states that for the past 3 weeks prior to her admission she has been experiencing worsening SOB, mostly with exertion. She presented to the Urgent Care on 07/05 for her SOB, cough and congestion and asked to present to the ED due to her SOB. CT Chest with constrast reveals: 1. Extensive mediastinal adenopathy including large confluent precarinal and subcarinal lymph nodes up to 7 cm in maximal dimension along with large area of confluent right hilar multilobular adenopathy. Additional nodes are noted in the left supraclavicular region as well as caridad hepatis in the abdomen. There is a left high paratracheal lymph node at least 3.5 x 4.1 cm displacing the trachea to the right. No appreciable axillary lymphadenopathy. 2. There appears to be some direct extension into the right lower lobe bronchus best appreciated on coronal reformats. Findings are new since CT chest from 12/24/16. Oncology consulted with the above findings. Pulmonlogy has also been consulted. Ms. Medley reports her SOB and cough symptoms have worsened over the past 3 weeks. She also reports a 15 pound weight loss of the past 4-6 weeks. She is a current every day smoker, 1PPD x41 years. She denies nausea, vomiting, diarrhea , headache, dizziness, hemoptysis, pain, calf pain, numbness/tingling or chest pain. She states she is quite active every day and cleans her home, gardens and works outside. She states she is able to walk a full flight of stairs without stopping due to SOB/fatigue. She recently lost her younger sister at age 67 and her older sister at age 82 to lung cancer. She does not require home O2. Past Med Surg Social Fam HX - Past Medical History Medical history: asthma, COPD, coronary artery disease, GERD, hyperlipidemia, hypertension, myocardial infarction, renal disease Psychiatric history: anxiety, depression - Past Surgical History Surgical History: angioplasty/stent, coronary bypass (CABG), CARLOS/BSO, thyroidectomy - Social History Smoking Status: Current every day smoker Smokeless Tobacco Status: No Alcohol use: none Drug use: none - Family History Father Adopted: No Family Member Ethnicity: Non- Living Status: Age at : 58 Cause of : colon and stomach cancer Mother Adopted: No Living Status: Cause of : heart attack Hx Family Cardiac Disorders: Yes Medications and Allergies Amlodipine Besylate 10 mg PO DAILY 08/19/16 [History] Aspirin [Lo-Dose Aspirin EC] 81 mg PO DAILY 08/19/16 [History] Atorvastatin Calcium [Lipitor] 80 mg PO DAILY 08/19/16 [History] Buspirone HCl [Buspar] 15 mg PO BID 08/19/16 [History] Clopidogrel [Plavix] 75 mg PO DAILY 08/19/16 [History] Ergocalciferol (VITAMIN D2) [Vitamin D2] 50,000 unit PO QWEEK 08/19/16 [History] Isosorbide MONOnitrate [Isosorbide Mononitrate ER] 120 mg PO DAILY 08/19/16 [ History] Levothyroxine [Synthroid] 100 mcg PO DAILY 08/19/16 [History] Lisinopril [Zestril] 10 mg PO DAILY 08/19/16 [History] Metoprolol XL (24 HR) Succ [Toprol Xl] 12.5 mg PO DAILY 08/19/16 [History] Nitroglycerin [Nitrostat] 0.4 mg SL Q5M PRN 08/19/16 [History] Omeprazole [PriLOSEC] 20 mg PO DAILY 08/19/16 [History] Sucralfate [Carafate] 1 gm PO BID 08/19/16 [History] Trazodone HCl 50 mg PO HS PRN 08/19/16 [History] Lactobacillus Acidophilus [Acidophilus] 100 mg PO QID 09/13/16 [History] Hyoscyamine Sulfate [Levbid] 0.375 mg PO BID 07/05/17 [History] ALPRAZolam [Xanax 0.25 MG Tablet] 0.25 mg PO Q8HR 7 Days #21 tablet 07/07/17 [Rx ] Amoxicillin/Clavulanate [Augmentin] 500 mg PO BIDWM 8 Days #16 tablet 07/07/17 [ Rx] 3 Allergy/AdvReac Type Severity Reaction Status Date / Time celecoxib [From Celebrex] AdvReac See Verified 07/05/17 11:42 Comments NSAIDS (Non-Steroidal AdvReac SEE COMMENT Verified 07/05/17 11:42 Anti-Inflamma Sulfa (Sulfonamide AdvReac AMS Verified 07/05/17 11:42 Antibiotics) Constitutional: Present: anorexia, fatigue, weakness, weight loss. Absent: chills, fever(s) Ears: Present: ear discharge, ear pain Nose, mouth and throat: Present: nasal congestion, sore throat. Absent: dysphagia Cardiovascular: Absent: chest pain, irregular heart rhythm, palpitations Respiratory: Present: as per HPI, cough, dyspnea. Absent: hemoptysis Gastrointestinal: Absent: abdominal pain, change in bowel habits, hematochezia, melena, nausea, vomiting Genitourinary: Absent: dysuria, hematuria Musculoskeletal: Present: muscle weakness. Absent: numbness, tingling Integumentary: Absent: wounds Neurological: Absent: focal weakness, frequent falls Psychiatric: Present: change in appetite Hematologic/Lymphatic: Present: as per HPI Oncology - Exam - Constitutional Vitals: Temp Pulse Resp BP Pulse Ox 98.4 F 76 16 128/63 95 07/07/17 16:11 07/07/17 16:11 07/07/17 16:19 07/07/17 16:11 07/07/17 16:19 General appearance: cooperative, no acute distress, thin, no febrile Exam: chronically ill appearing - Head Head exam: Present: atraumatic - ENT ENT exam: Present: mucous membranes moist - Respiratory Respiratory exam: Present: decreased breath sounds, wheezes. Absent: respiratory distress - Cardiovascular Cardiovascular exam: Present: RRR, +S1, +S2 - GI/Abdominal GI/Abdominal exam: Present: normal bowel sounds, soft. Absent: tenderness - Extremities Exam Extremities exam: Present: normal inspection. Absent: calf tenderness - Neurological Exam Neurological exam: Present: alert, oriented X3, no focal deficits, strengths equal and symetr throughout - Psychiatric Psychiatric exam: Present: normal affect, normal mood - Skin Skin exam: Present: dry, intact, normal color, warm Oncology - Results Labs: Short CBC 07/07/17 Range/Units 05:27 WBC 12.6 H D (4.3-11.1) K/mcL Hgb 12.4 (11.5-15.4) g/dL Hct 38.6 (35.3-44.9) % Plt Count 166 (140-400) K/mcL Neutrophils # 11.7 H (1.6-8.9) K/mcL BMP 07/07/17 05:27 Sodium 136 Potassium 4.7 Chloride 112 H Carbon Dioxide 15 L BUN 18 Creatinine 0.76 Glucose 151 H Calcium 8.0 L Consult Discharge Plan - Plan Instructions: Alprazolam (By mouth), Amoxicillin/Clavulanate Potassium (By mouth), Chronic Obstructive Pulmonary Disease (DC) Referrals: Milana Montemayor, MAN [Primary Care Provider] - 07/15/17 1:00 pm Prescriptions: ALPRAZolam [Xanax 0.25 MG Tablet] 0.25 mg PO Q8HR 7 Days #21 tablet Amoxicillin/Clavulanate [Augmentin] 500 mg PO BIDWM 8 Days #16 tablet
--- NOTE | 2017-07-07 16:58 | Discharge Summary ---
- NOTES TO OUTPATIENT PROVIDER Notes to Outpatient Provider: Presented with mild shortness of breath, acute exacerbation of COPD. Found concerning results with centralized lymphadenopathy per CT. Follow-up with pulmonology for bronchoscopy within 1 week of discharge. Instructed to follow-up with PCP within 1 week of discharge Orders not resulted at time of discharge: Pending orders 07/08/17 04:00 Basic Metabolic Panel AM 0400 Complete Blood Count [HEME] AM 0400 LDH [Lactate Dehydrogenase] AM 0400 07/09/17 04:00 Basic Metabolic Panel AM 0400 Complete Blood Count [HEME] AM 0400 Date of Encounter: 07/07/17 Time of Encounter: 16:55 - Discharge Diagnosis (1) Acute exacerbation of chronic obstructive pulmonary disease (COPD) Priority: Primary Status: Acute Assessment and Plan: Admitted with an acute exacerbation of COPD Respiratory status improving, patient stating that she is back at baseline Resting comfortable on RA at 98%, no wheezing or shortness of breath above baseline noted No ambulatory dyspnea observed while ambulating in the room Send home with bronchodilators and oral steroid burst (2) Abnormal CT of the chest Priority: Secondary Status: Acute Assessment and Plan: CT completed today with the following findings 1. Extensive mediastinal adenopathy including large confluent precarinal and subcarinal lymph nodes up to 7 cm in maximal dimension along with large area of confluent right hilar multilobular adenopathy. Exact size difficult to measure. Additional nodes are noted in the left supraclavicular region as well as caridad hepatis in the abdomen.. These findings have developed since the last exam. Sarcoidosis considered rather unlikely. 2. There appears to be some direct extension into the right lower lobe bronchus best appreciated on coronal reformats. DDX includes metastatic disease, head and neck cancer, lymphoma Oncology consulted- recommendations for CT abdomen/pelvis, head. Pulmonology consulted. Plan was for bronchoscopy tomorrow. However, the patient is adamant about discharging. She was informed that his medical team's opinion would be beneficial for her stay to receive bronchoscopy will inpatient. However, the patient reports that she feels like she would be more comfortable home and does not wish stay. For respiratory perspective she is stable with only mild baseline shortness of breath no hypoxia. Resting comfortably on room air. She has remained hemodynamically stable. Given the patient is adamant about discharging she will be sent home with instructions to return to the ED should shortness of breath return. Also, pulmonology recommends patient follow up for outpatient bronchoscopy this week. (3) Chronic sinusitis, unspecified Priority: Secondary Status: Acute Assessment and Plan: follows with ENT Qualifiers: Qualified Code(s): J32.9 - Chronic sinusitis, unspecified (4) Acute otitis media with effusion of right ear Priority: Secondary Status: Acute Assessment and Plan: Found to have OM with purulent effusion. No drainage. H/o chronic OM, follows with ENT at [place]. Continue Augmentin at discharge She has been instructed to finish all ABX (5) Hyperlipemia Priority: Secondary Status: Acute Assessment and Plan: Continue cholesterol medication Qualifiers: Hyperlipidemia type: unspecified Qualified Code(s): E78.5 - Hyperlipidemia , unspecified (6) Hypothyroid Priority: Secondary Status: Acute Assessment and Plan: Continue thyroid medication Qualifiers: Hypothyroidism type: unspecified Qualified Code(s): E03.9 - Hypothyroidism , unspecified (7) DVT prophylaxis Priority: Secondary Status: Acute Hospital course: Ms. Medley is a 71 year old female See assessment and plan for hospital course Discharge discussed with: patient, family, nurse, retail client solutions consultant - Time Spent with Patient Total time spent providing and/or coordinating discharge services: Greater than 30 minutes - Discharge Medications Prescriptions: ALPRAZolam [Xanax 0.25 MG Tablet] 0.25 mg PO Q8HR 7 Days #21 tablet Amoxicillin/Clavulanate [Augmentin] 500 mg PO BIDWM 8 Days #16 tablet Home Medications: Amlodipine Besylate 10 mg PO DAILY 08/19/16 [History] Aspirin [Lo-Dose Aspirin EC] 81 mg PO DAILY 08/19/16 [History] Atorvastatin Calcium [Lipitor] 80 mg PO DAILY 08/19/16 [History] Buspirone HCl [Buspar] 15 mg PO BID 08/19/16 [History] Clopidogrel [Plavix] 75 mg PO DAILY 08/19/16 [History] Ergocalciferol (VITAMIN D2) [Vitamin D2] 50,000 unit PO QWEEK 08/19/16 [History] Isosorbide MONOnitrate [Isosorbide Mononitrate ER] 120 mg PO DAILY 08/19/16 [ History] Levothyroxine [Synthroid] 100 mcg PO DAILY 08/19/16 [History] Lisinopril [Zestril] 10 mg PO DAILY 08/19/16 [History] Metoprolol XL (24 HR) Succ [Toprol Xl] 12.5 mg PO DAILY 08/19/16 [History] Nitroglycerin [Nitrostat] 0.4 mg SL Q5M PRN 08/19/16 [History] Omeprazole [PriLOSEC] 20 mg PO DAILY 08/19/16 [History] Sucralfate [Carafate] 1 gm PO BID 08/19/16 [History] Trazodone HCl 50 mg PO HS PRN 08/19/16 [History] Lactobacillus Acidophilus [Acidophilus] 100 mg PO QID 09/13/16 [History] Hyoscyamine Sulfate [Levbid] 0.375 mg PO BID 07/05/17 [History] ALPRAZolam [Xanax 0.25 MG Tablet] 0.25 mg PO Q8HR 7 Days #21 tablet 07/07/17 [Rx ] Amoxicillin/Clavulanate [Augmentin] 500 mg PO BIDWM 8 Days #16 tablet 07/07/17 [ Rx] Allergies/Adverse Reactions: 3 Allergy/AdvReac Type Severity Reaction Status Date / Time celecoxib [From Celebrex] AdvReac See Verified 07/05/17 11:42 Comments NSAIDS (Non-Steroidal AdvReac SEE COMMENT Verified 07/05/17 11:42 Anti-Inflamma Sulfa (Sulfonamide AdvReac AMS Verified 07/05/17 11:42 Antibiotics) Date of admission: 07/05/17 17:03 Primary care physician: Milana Montemayor CNP Consults: 07/07/17 16:03 Consult to Oncology [CONS] Routine Consulting Provider: Oncology [facility] [place] Reason for Consult: CONCERN FOR MALIGNANCY Time Notified: 16:04 Call Completed: Yes 07/07/17 16:04 Consult to Pulmonology [CONS] Routine Consulting Provider: [facility] [place] Reason for Consult: CONCERN FOR MALIGNANCY Time Notified: 16:07 Call Completed: Yes Discharging clinician: Jorge Alberto Nicholson Anticipated date of discharge: 07/07/17 - Constitutional Vitals: Temp Pulse Resp BP Pulse Ox 98.4 F 76 16 128/63 95 07/07/17 16:11 07/07/17 16:11 07/07/17 16:19 07/07/17 16:11 07/07/17 16:19 General appearance: Present: A&O X 3 - Head Head exam: Present: atraumatic, normocephalic - Eye Eye exam: Present: PERRL, conjuntiva pink, sclera anicteric Pupils: Present: PERRL - Neck Neck exam general surgery: Present: supple, trachea midline. Absent: lymphadenopathy - Respiratory Respiratory exam: Present: CTAB. Absent: accessory muscle use, rales, rhonchi, wheezes - Cardiovascular Cardiovascular exam: Present: RRR, +S1, +S2. Absent: diastolic murmur, gallop, rubs, systolic murmur - GI/Abdominal GI/Abdominal exam: Present: normal bowel sounds, soft, no peritoneal signs. Absent: distended, tenderness - Extremities Exam Extremities exam: Present: warm, radial pulses palpable and symmetrical. Absent : calf tenderness, cyanotic, pedal edema - Neurological Exam Neurological exam: Present: CN II-XII intact, oriented X3, no focal deficits. Absent: pronater drift, facial droop, speech deficit - Skin Skin exam: Present: dry, intact - Patient Status Disposition: Home, Self-Care Condition: Fair Overall status at discharge: patient is back to baseline (Per patient, patient back to baseline, stable from a respiratory perspective, no hypoxia.) - Discharge Instructions Instructions: Alprazolam (By mouth), Amoxicillin/Clavulanate Potassium (By mouth), Chronic Obstructive Pulmonary Disease (DC) Follow Up With: Milana Montemayor CNP [Primary Care Provider] - 07/15/17 1:00 pm Forms: ED Satisfaction Letter - Diet and Activity Activity: as per physical therapy Diet: advance to your usual diet
--- NOTE | 2017-07-07 17:13 | Pulmonology Consult Note ---
Date of Encounter: 07/07/17 Time of Encounter: 16:45 History of Present Illness Consult date: 07/07/17 Requesting physician: Jorge Alberto Nicholson Reason for consult: COPD, abnormal CXR/CT, other (Adenopathy) Chief complaint: Shortness of breath History of present illness: This is very pleasant 71-year-old female who is known to me from outpatient clinic and she has significant history of COPD who was having worsening shortness of breath and presented to urgent care with ear pain and also difficulty breathing with left arm pain but denying any chest pain and continue to smoke tobacco and was found to have mediastinal adenopathy. Patient has family history of lung cancer and she also reported weight loss. Pulmonary was consulted for evaluation. She denies any other symptoms at this time. Past Med Surg Social Fam HX - Past Medical History Medical history: asthma, COPD, coronary artery disease, GERD, hyperlipidemia, hypertension, myocardial infarction, renal disease Psychiatric history: anxiety, depression - Past Surgical History Surgical History: angioplasty/stent, coronary bypass (CABG), CARLOS/BSO, thyroidectomy - Social History Smoking Status: Current every day smoker Smokeless Tobacco Status: No Alcohol use: none Drug use: none - Family History Father Adopted: No Family Member Ethnicity: Non- Living Status: Age at : 58 Cause of : colon and stomach cancer Mother Adopted: No Living Status: Cause of : heart attack Hx Family Cardiac Disorders: Yes Medications and Allergies Amlodipine Besylate 10 mg PO DAILY 08/19/16 [History] Aspirin [Lo-Dose Aspirin EC] 81 mg PO DAILY 08/19/16 [History] Atorvastatin Calcium [Lipitor] 80 mg PO DAILY 08/19/16 [History] Buspirone HCl [Buspar] 15 mg PO BID 08/19/16 [History] Clopidogrel [Plavix] 75 mg PO DAILY 08/19/16 [History] Ergocalciferol (VITAMIN D2) [Vitamin D2] 50,000 unit PO QWEEK 08/19/16 [History] Isosorbide MONOnitrate [Isosorbide Mononitrate ER] 120 mg PO DAILY 08/19/16 [ History] Levothyroxine [Synthroid] 100 mcg PO DAILY 08/19/16 [History] Lisinopril [Zestril] 10 mg PO DAILY 08/19/16 [History] Metoprolol XL (24 HR) Succ [Toprol Xl] 12.5 mg PO DAILY 08/19/16 [History] Nitroglycerin [Nitrostat] 0.4 mg SL Q5M PRN 08/19/16 [History] Omeprazole [PriLOSEC] 20 mg PO DAILY 08/19/16 [History] Sucralfate [Carafate] 1 gm PO BID 08/19/16 [History] Trazodone HCl 50 mg PO HS PRN 08/19/16 [History] Lactobacillus Acidophilus [Acidophilus] 100 mg PO QID 09/13/16 [History] Hyoscyamine Sulfate [Levbid] 0.375 mg PO BID 07/05/17 [History] ALPRAZolam [Xanax 0.25 MG Tablet] 0.25 mg PO Q8HR 7 Days #21 tablet 07/07/17 [Rx ] 3 Allergy/AdvReac Type Severity Reaction Status Date / Time celecoxib [From Celebrex] AdvReac See Verified 07/05/17 11:42 Comments NSAIDS (Non-Steroidal AdvReac SEE COMMENT Verified 07/05/17 11:42 Anti-Inflamma Sulfa (Sulfonamide AdvReac AMS Verified 07/05/17 11:42 Antibiotics) All Systems: The remainder of the systems were reviewed and are negative Physical Examination Vital Signs: Vital Signs, Last 4 Hours Temp Pulse Resp BP Pulse Ox 07/07/17 16:19 16 95 07/07/17 16:11 98.4 F 76 14 128/63 94 General appearance: no acute distress Eyes: nonicteric ENT: oropharynx moist Mallampati (class): 2 Neck: supple, lymphadenopathy, no JVD Effort: normal Inspection: hyperextended Auscultation: right: rhonchi, bilateral: diminished breath sounds Percussion: bilateral: not dull Cardiovascular: regular rate and rhythm Gastrointestinal: normoactive bowel sounds, non-distended Extremities: no cyanosis, no edema normal mental status, non-focal exam tearful Results - Laboratory Findings CBC and BMP: 07/07/17 05:27 07/07/17 05:27 PT/INR, D-dimer PT 10.7 Seconds (9.4-12.1) 07/06/17 03:06 Abnormal lab findings: Abnormal lab results WBC 12.6 K/mcL (4.3-11.1) H D 07/07/17 05:27 RDW 15.2 % (11.5-14.5) H 07/07/17 05:27 MPV 9.2 fL (9.4-12.4) L 07/07/17 05:27 Neutrophils # 11.7 K/mcL (1.6-8.9) H 07/07/17 05:27 Nucleated RBCs/100 WBC 0.3 /100 WBC (0) H 07/05/17 12:00 Toxic Granulation Present (Not Present) A 07/07/17 05:27 Chloride 112 mEq/L (98-107) H 07/07/17 05:27 Carbon Dioxide 15 mEq/L (23-29) L 07/07/17 05:27 Glucose 151 mg/dL (70-105) H 07/07/17 05:27 Calcium 8.0 mg/dL (8.6-10.3) L 07/07/17 05:27 LDL Cholesterol, Calc 100 mg/dL (0-99) H 07/06/17 03:06 - Diagnostic Findings CT scan - chest: report reviewed, image reviewed - Clinical Findings Intake & Output: Intake & Output 07/07/17 07/07/17 07/07/17 07:59 15:59 23:59 Weight 54.3 kg Consult Discharge Plan - Plan Instructions: Chronic Obstructive Pulmonary Disease (DC) Referrals: Milana Montemayor CNP [Primary Care Provider] - 07/15/17 1:00 pm Prescriptions: ALPRAZolam [Xanax 0.25 MG Tablet] 0.25 mg PO Q8HR 7 Days #21 tablet - Attending Attestation Assessment and plan: 1. Mediastinal adenopathy: This is very suspicious for underlying primary lung cancer and small cell lung cancer in the differential diagnosis as well as non- small cell in the differential diagnosis and I explained to the patient in the presence of the nurse and the primary team that my recommendation would be to stay in the hospital and to do biopsy as soon as possible, however patient prefers to go home and scheduled this for her as outpatient which I will work on it and I am hoping this can be done this week. 2. COPD: Possible COPD exacerbation and she is being treated appropriately and denies any worsening of her symptoms at this time. 3. Tobacco abuse: Patient was advised in the past to quit smoking and she was advised again. Thank you very much for consultation.
== END 2017-07-07 17:45 | disposition home or self-care (01) | DRG 192 ==
LOC: 3BNU 11:39 → EMEROO 11:39 → 3BNU 14:13
PROVIDERS: ADMIT Internal Medicine Nephrology; ATTEND General Practice